=== PATIENT | male | born 2000 | race Two or more races ===

== ENCOUNTER 2025-02-01 02:11 | Emergency (ER) | payer SELFPAY ==
[~2025-02-01] VITALS: Ht 188 cm; Wt 68.0 kg
[2025-02-01] MEDS ORDERED: KETOROLAC TROMETHAMINE INJ 30 MG/ML VIAL ONE (03:27)
[2025-02-01] MEDS: KETOROLAC TROMETHAMINE INJ 30 MG/ML VIAL IM ONE (03:33)
[2025-02-01 04:15] LABS: APPEARANCE,URINE CLEAR (CLEAR); BLOOD, URINE NEGATIVE Ery/uL (NEGATIVE); LEUKOCYTE ESTERASE ,URINE NEGATIVE (NEGATIVE); NITRITE, URINE NEGATIVE (NEGATIVE); UGLUCOSE NEGATIVE (NEGATIVE)
[2025-02-01 04:26] LABS: AMPHETAMINE, URINE NEGATIVE (NEGATIVE); BARBITURATE, URINE NEGATIVE (NEGATIVE); BENZODIAZEPINE, URINE NEGATIVE (NEGATIVE); CANNABINOID, URINE POSITIVE (NEGATIVE); COCCAINE, URINE NEGATIVE (NEGATIVE); OPIATE, URINE NEGATIVE (NEGATIVE)
[2025-02-01 05:54] VITALS: BP 120/70; TEMP 98; O2SAT 100
== END 2025-02-01 05:56 | disposition home or self-care (01) ==
LOC: ER 02:13
DX: S09.90XA Unspecified injury of head, initial encounter (principal); W18.30XA Fall on same level, unspecified, initial encounter; Y93.9 Activity, unspecified; Y92.89 Other specified places as the place of occurrence of the external cause; Y99.9 Unspecified external cause status; Z79.899 Other long term (current) drug therapy
CPT/HCPCS: 99285; 70450; 96372; 73090; 80307; 81003; J1885